=== PATIENT | female | born 1980 | race African-American/Black ===

== ENCOUNTER 2019-11-24 11:11 | Emergency (ER) | payer SELFPAY ==
[~2019-11-24] VITALS: Ht 170.2 cm; Wt 129.0 kg
[2019-11-24 11:29] VITALS: BP 125/80
== END 2019-11-24 15:13 | disposition left against medical advice (07) ==
LOC: ER 11:11
DX: Z53.21 Procedure and treatment not carried out due to patient leaving prior to being seen by health care provider (principal)